=== PATIENT | male | born 1990 | race Caucasian/White ===

== ENCOUNTER 2016-10-19 20:16 | Emergency (ER) | payer OTHER ==
--- NOTE | 2016-10-19 20:50 | ER Document Report ---
ED Medical Screen (RME) - General Chief Complaint: Testicular Pain Stated Complaint: ABDOMINAL PAIN/TESTICULAR PAIN Notes: The patient is a 26-year-old male, past medical history multiple inguinal hernia repairs, presents with 2 days of increasing pain and swelling of the right testicle that is now going into his right groin. He is not concerned about STDs because his only partner is his . Denies penile discharge, sores , fevers, nausea or vomiting. I have greeted and performed a rapid initial assessment of this patient. A comprehensive ED assessment and evaluation of the patient, analysis of test results and completion of the medical decision making process will be conducted by additional ED providers. TRAVEL OUTSIDE OF THE [place] IN LAST 30 DAYS: No - Related Data Allergies/Adverse Reactions: No Known Allergies Allergy (Verified 10/19/16 20:41) Past Medical History Renal/ Medical History: Denies: Hx Peritoneal Dialysis Physical Exam - Vital signs Vitals: Temp Pulse BP Pulse Ox 98.9 F 75 136/71 H 100 10/19/16 20:29 10/19/16 20:29 10/19/16 20:29 10/19/16 20:29 Course - Vital Signs Vital signs: Temp Pulse Resp BP Pulse Ox 98.9 F 75 136/71 H 100 10/19/16 20:29 10/19/16 20:29 10/19/16 20:29 10/19/16 20:29
[2016-10-19 21:11] LABS: APPEARANCE,URINE CLEAR; BILIRUBIN,URINE NEGATIVE (NEGATIVE); GLUCOSE, URINE NEGATIVE (NEGATIVE); KETONES,URINE NEGATIVE (NEGATIVE); LEUKOCYTE ESTERASE,URINE NEGATIVE (NEGATIVE); NITRITE,URINE NEGATIVE (NEGATIVE); PROTEIN,URINE NEGATIVE (NEGATIVE); URINE SPECIFIC GRAVITY 1.008; UROBILINOGEN,URINE NEGATIVE mg/dL (<2.0)
--- NOTE | 2016-10-19 22:32 | ER Document Report ---
ED General - General Chief Complaint: Testicular Pain Stated Complaint: ABDOMINAL PAIN/TESTICULAR PAIN Notes: Patient is a 26-year-old male without past medical history who presents with right testicular pain. Patient states that he noticed the testicle becoming larger 2 weeks ago and although initially he did not have any discomfort, notes now he has developed a dull, constant, throbbing, aching pain since that time. Nothing improves or worsens the discomfort. He was seen at his primary care doctor's office today and referred to the emergency department for concerns of possible testicular malignancy. No prior history of such. He did have an undescended testicle for a period of time when he was 12 years of age. He has not had any weight loss, fever, vomiting, or any additional symptoms. TRAVEL OUTSIDE OF THE [place] IN LAST 30 DAYS: No - Related Data Allergies/Adverse Reactions: No Known Allergies Allergy (Verified 10/19/16 20:41) Past Medical History - General Information source: Patient - Social History Smoking Status: Never Smoker Frequency of alcohol use: None Drug Abuse: None Lives with: Spouse/Significant other Family History: Reviewed & Not Pertinent Patient has suicidal ideation: No Patient has homicidal ideation: No Renal/ Medical History: Denies: Hx Peritoneal Dialysis Review of Systems - Review of Systems Notes: Constitutional: Negative for fever. HENT: Negative for sore throat. Eyes: Negative for visual changes. Cardiovascular: Negative for chest pain. Respiratory: Negative for shortness of breath. Gastrointestinal: Negative for abdominal pain, vomiting or diarrhea. Genitourinary: Negative for dysuria. Positive for right testicular discomfort and swelling Musculoskeletal: Negative for back pain. Skin: Negative for rash. Neurological: Negative for headaches, weakness or numbness. 10 point ROS negative except as marked above and in HPI. Physical Exam - Vital signs Vitals: Temp Pulse BP Pulse Ox 98.9 F 75 136/71 H 100 10/19/16 20:29 10/19/16 20:29 10/19/16 20:29 10/19/16 20:29 Interpretation: Normal Notes: PHYSICAL EXAMINATION: GENERAL: Well-appearing, well-nourished and in no acute distress. HEAD: Atraumatic, normocephalic. EYES: Pupils equal round and reactive to light, extraocular movements intact, sclera anicteric, conjunctiva are normal. ENT: nares patent, oropharynx clear without exudates. Moist mucous membranes. NECK: Normal range of motion, supple without lymphadenopathy LUNGS: Breath sounds clear to auscultation bilaterally and equal. No wheezes rales or rhonchi. HEART: Regular rate and rhythm without murmurs ABDOMEN: Soft, nontender, normoactive bowel sounds. No guarding, no rebound. No masses appreciated. : Firm right testicle with a horizontal lie. EXTREMITIES: Normal range of motion, no pitting or edema. No cyanosis. NEUROLOGICAL: No focal neurological deficits. Moves all extremities spontaneously and on command. PSYCH: Normal mood, normal affect. SKIN: Warm, Dry, normal turgor, no rashes or lesions noted. Course - Re-evaluation Re-evalutation: 10/19/16 22:30 Presentation is very concerning for testicular cancer given exam which show a firm right testicle and ultrasound findings consistent with this diagnosis. Patient does not have access to insurance. I will contact [facility] for evaluation by urology and oncology on an urgent basis. 10/20/16 00:01 I spoke with the urologist floor covering contractor by the [facility] Dr. Valencia who stated though he was happy to see the patient the patient had to have cashed pay for the office visit. Therefore I called the on-call urologist at [facility] Dr. Lindsey who states that they will follow patient up in the next 1-2 weeks in clinic. I faxed over the results of his imaging studies as well as a request for urgent evaluation. I also discussed this case with Dr. Pardo are on-call oncologist who likewise is happy to follow-up with the patient as needed for any additional assistance beyond what Dorena provides. This was discussed at length with the patient. - Vital Signs Vital signs: Temp Pulse Resp BP Pulse Ox 97.9 F 76 18 123/68 98 10/20/16 00:10 10/20/16 00:10 10/20/16 00:10 10/20/16 00:10 10/20/16 00:10 - Diagnostic Test Radiology reviewed: Reports reviewed Discharge - Discharge Condition: Good Disposition: HOME, SELF-CARE Additional Instructions: Unfortunately, your examination ultrasound suggest that you have cancer in your right testicle. I spoke with Dr. Lindsey at [facility] who has asked that you call the office on Sunday. I include contact information for a local oncologist Dr. Pardo. Return to the emergency department if you have worsening pain to the testicle, vomiting, fever greater than 100.4F or any other symptoms that are worrisome to you. [facility] urology clinic: Referrals: VENKAT PARDO MD [ACTIVE STAFF] - Follow up as needed
[2016-10-20 00:29] VITALS: BP 123/68
== END 2016-10-20 00:10 | disposition home or self-care (01) ==
LOC: ER 20:16
DX: C62.11 Malignant neoplasm of descended right testis (principal); N50.811 Right testicular pain
CPT/HCPCS: 76870; 81001; 93976; 99284

== ENCOUNTER 2016-10-23 18:50 | Emergency (ER) | payer SELFPAY ==
--- NOTE | 2016-10-23 18:58 | ER Document Report ---
ED General - General Stated Complaint: CT/DR RAMSAY Notes: Patient is a 26-year-old male whom I saw 48 hours ago for concern of right testicular mass. He returns today at the request of the urologists for staging CTs. He denies any new or different complaints today. He does complain of some mild, dull, constant aching pain to the right testicle which is not new or different today. Nothing improves or worsens his discomfort. Denies any vomiting or constitutional symptoms. TRAVEL OUTSIDE OF THE [place] IN LAST 30 DAYS: No - Related Data Allergies/Adverse Reactions: No Known Allergies Allergy (Verified 10/19/16 20:41) Past Medical History - General Information source: Patient - Social History Smoking Status: Never Smoker Frequency of alcohol use: None Drug Abuse: None Lives with: Spouse/Significant other Family History: Reviewed & Not Pertinent Renal/ Medical History: Denies: Hx Peritoneal Dialysis GI Medical History: Reports: Hx Hiatal Hernia Review of Systems - Review of Systems Notes: Constitutional: Negative for fever. HENT: Negative for sore throat. Eyes: Negative for visual changes. Cardiovascular: Negative for chest pain. Respiratory: Negative for shortness of breath. Gastrointestinal: Negative for abdominal pain, vomiting or diarrhea. Genitourinary: Positive for mild right testicular discomfort Musculoskeletal: Negative for back pain. Skin: Negative for rash. Neurological: Negative for headaches, weakness or numbness. 10 point ROS negative except as marked above and in HPI. Physical Exam - Vital signs Interpretation: Normal Notes: PHYSICAL EXAMINATION: GENERAL: Well-appearing, well-nourished and in no acute distress. HEAD: Atraumatic, normocephalic. EYES: sclera anicteric, conjunctiva are normal. ENT: Moist mucous membranes. NECK: Normal range of motion LUNGS: Normal work of breathing HEART: 2+ radial pulses bilaterally EXTREMITIES: no pitting or edema. No cyanosis. NEUROLOGICAL: No focal neurological deficits. Moves all extremities spontaneously and on command. PSYCH: Normal mood, normal affect. SKIN: Warm, Dry, normal turgor, no rashes or lesions noted. Course - Re-evaluation Re-evalutation: 10/23/16 20:11 Patient returns today for staging CTs per the request of the urologist to whom I referred him on Sunday. Patient continues complain of some mild, dull aching pain to the right testicle but states nothing is otherwise new or different. He is well in appearance. No focal findings on exam other than ongoing firmness of the right testicle. Will obtain CT of the chest abdomen and pelvis with IV contrast. 10/23/16 22:21 CT abdomen and pelvis does demonstrate one lymph node that is enlarged in the right inguinal region likely metastatic in origin. The patient has been provided copies of his imaging studies to take with him for his appointment tomorrow.At this time will discharge with return precautions and follow-up recommendations. Verbal discharge instructions given a the bedside and opportunity for questions given. Medication warnings reviewed. Patient is in agreement with this plan and has verbalized understanding of return precautions and the need for primary care follow-up in the next 24-72 hours. 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 Stay strong, you are going to pull through this! Return for any additional concerns you may have.
[2016-10-23 22:32] VITALS: BP 148/84
== END 2016-10-23 22:31 | disposition home or self-care (01) ==
LOC: ER 18:50
DX: C62.11 Malignant neoplasm of descended right testis (principal); N50.811 Right testicular pain
CPT/HCPCS: 71260; 74177; 99284

== ENCOUNTER → 2017-02-20 | Outpatient (CLI) | payer MEDICAID, OTHER ==
[2017-02-20 17:22] LABS: ABSOLUTE EOSINOPHILS # (AUTO) 0.2 10^3/uL (0.0-0.6); ABSOLUTE LYMPHOCYTES (AUTO) 2.6 10^3/uL (0.5-4.7); ABSOLUTE MONOCYTES (AUTO) 0.6 10^3/uL (0.1-1.4); ABSOLUTE NEUT (AUTO) 5.9 10^3/uL (1.7-8.2); BASOPHILS % (AUTO) 0.4 % (0-2); EOSINOPHILS % (AUTO) 2.1 % (0-6); HEMATOCRIT 43.2 % (37.9-51.0); HEMOGLOBIN 14.5 g/dL (13.5-17.0); HGB HCT DIFFERENCE 0.3; MEAN CORPUSCULAR HEMOGLOBIN 29.4 pg (27.0-33.4); MEAN CORPUSCULAR HGB CONC 33.6 g/dL (32.0-36.0); MEAN CORPUSCULAR VOLUME 87 fl (80-97); MONOCYTES % (AUTO) 6.7 % (3-13); RED BLOOD COUNT 4.94 10^6/uL (4.35-5.55); RED CELL DISTRIBUTION WIDTH 13.4 % (11.5-14.0); SEGMENTED NEUTROPHILS % (AUTO) 62.8 % (42-78); WHITE BLOOD COUNT 9.4 10^3/uL (4.0-10.5)
== END ==
LOC: OD 15:55
PROVIDERS: ATTEND Radiology Radiation Oncology
DX: C62.01 Malignant neoplasm of undescended right testis (principal)
CPT/HCPCS: 36415; 85025

== ENCOUNTER → 2017-07-21 | Outpatient (CLI) | payer BC ==
[2017-07-24 09:24] LABS: AFP SERUM TUMOR MARKER 3.6 ng/mL (0.0-8.3)
== END ==
LOC: OD 09:38
PROVIDERS: ATTEND Radiology Radiation Oncology
DX: C62.01 Malignant neoplasm of undescended right testis (principal)
CPT/HCPCS: 36415; 82105; 83615; 84702

== ENCOUNTER → 2017-10-19 | Outpatient (CLI) | payer BC, OTHER ==
[2017-10-22 09:31] LABS: AFP SERUM TUMOR MARKER 3.5 ng/mL (0.0-8.3)
== END ==
LOC: OD 15:44
PROVIDERS: ATTEND Radiology Radiation Oncology
DX: C62.01 Malignant neoplasm of undescended right testis (principal)
CPT/HCPCS: 36415; 82105; 83615; 84702

== ENCOUNTER → 2018-06-26 | Outpatient (CLI) | payer BC | LOC: OD 11:22 | PROVIDERS: ATTEND Radiology Radiation Oncology | DX: C62.01 Malignant neoplasm of undescended right testis (principal) | CPT/HCPCS: 36415; 82105; 83615; 84702 ==